=== PATIENT | female | born 1985 | race Caucasian/White ===

== ENCOUNTER 2019-05-22 07:17 | Emergency (ER) | payer OTHER ==
--- NOTE | 2019-05-22 07:49 | ERPHSYRPT ---
- History of Present Illness Time Seen by Provider: 05/22/19 07:22 Historian: patient Physician History: Patient is here with abdominal pain. Started 3 days ago. No falls no trauma. Previous tubal ligation. Location: left flank Quality: sharp Radiation: none Severity: moderate Duration: 3 days Timing: gradual Modifying factors/associated signs and symptoms: home OTC medication Allergies/Adverse Reactions: No Known Drug Allergies Allergy (Unverified 05/22/19 07:45) Home Medications: Levothyroxine Sodium 112 Mcg [Synthroid 112 Mcg] 1 tab PO DAILY 05/22/19 [ History] Travel Risk - International Travel Have you traveled outside of the country in past 3 weeks: No Have you or anyone close to you been diagnosed with or: No Do your reside in a community with a known COVID-19 case?: Yes If Yes where:: [place] - Coronavirus Screening Has patient experienced Coronavirus symptoms: No - Review of Systems Constitutional: No Fever, No Chills Eyes: No Symptoms Ears, Nose, & Throat: No Symptoms Respiratory: No Cough, No Dyspnea Cardiac: No Chest Pain, No Edema, No Syncope Abdominal/Gastrointestinal: Abdominal Pain, No Nausea, No Vomiting, No Diarrhea Genitourinary Symptoms: Dysuria Musculoskeletal: No Back Pain, No Neck Pain Skin: No Rash Neurological: No Dizziness, No Focal Weakness, No Sensory Changes Psychological: No Symptoms Endocrine: No Symptoms All Other Systems: Reviewed and Negative - Nursing Vital Signs Nursing Vital Signs: Initial Vital Signs Temperature 96.7 F 05/22/19 07:47 Pulse Rate 77 05/22/19 07:47 Respiratory Rate 18 05/22/19 07:47 Blood Pressure 120/82 05/22/19 07:47 O2 Sat by Pulse Oximetry 100 05/22/19 07:47 Pain Scale Pain Intensity 0 - Physical Exam General Appearance: no apparent distress, alert Eye Exam: PERRL/EOMI, eyes nml inspection Ears, Nose, Throat Exam: normal ENT inspection, pharynx normal, moist mucous membranes Neck Exam: normal inspection, non-tender, supple, full range of motion Respiratory Exam: normal breath sounds, lungs clear, No respiratory distress Cardiovascular Exam: regular rate/rhythm, normal heart sounds Gastrointestinal/Abdomen Exam: soft, other (Left flank tenderness to palpation. Abdomen is soft without rebound or guarding.), No tenderness, No mass Back Exam: normal inspection, normal range of motion, No CVA tenderness, No vertebral tenderness Extremity Exam: normal inspection, normal range of motion, pelvis stable Neurologic Exam: alert, oriented x 3, cooperative, normal mood/affect, nml cerebellar function, sensation nml, No motor deficits Skin Exam: normal color, warm, dry Ordered Tests: Active Orders 24 hr Category Date Time Status ABDOMEN AND PELVIS W CONTRAST [CT] Stat Exams 05/22/19 08:39 Taken CBC W DIFF Stat Lab 05/22/19 07:58 Completed CMP Stat Lab 05/22/19 07:58 Completed CULTURE,URINE Stat Lab 05/22/19 08:06 Received HCG,QUALITATIVE URINE Stat Lab 05/22/19 08:06 Completed LIPASE Stat Lab 05/22/19 07:58 Completed UA W/RFX UR CULTURE Stat Lab 05/22/19 08:06 Completed Medication Summary Discontinued Medications Generic Name Dose Route Start Last Admin Trade Name Freq PRN Reason Stop Dose Admin Sodium Chloride 1,000 mls @ 999 mls/hr 05/22/19 07:53 05/22/19 08:06 Sodium Chloride 0.9% 1000 Ml IV 05/22/19 08:53 999 mls/hr .Q1H1M STA Administration Sodium Chloride Confirm 05/22/19 07:56 Sodium Chloride 0.9% 1000 Ml Administered 05/22/19 07:57 Dose 1,000 mls @ ud .ROUTE .STK-MED ONE Morphine Sulfate Confirm 05/22/19 07:57 Morphine Sulfate 4 Mg Inj Administered 05/22/19 07:58 Dose 4 mg .ROUTE .STK-MED ONE Morphine Sulfate 10 mg 05/22/19 09:02 Morphine Sulfate 10 Mg/Ml IV 05/22/19 09:03 STAT ONE Ondansetron HCl 4 mg 05/22/19 07:53 05/22/19 08:06 Zofran 4 Mg/2 Ml Vial IV 05/22/19 07:54 4 mg STAT ONE Administration Ondansetron HCl Confirm 05/22/19 07:56 Zofran 4 Mg/2 Ml Vial Administered 05/22/19 07:57 Dose 4 mg .ROUTE .STK-MED ONE Lab/Rad Data: Laboratory Result Diagrams 05/22/19 07:58 05/22/19 07:58 Laboratory Results 05/22/19 05/22/19 05/22/19 Range/Units 08:06 08:06 07:58 WBC (4.0-10.5) K/mm3 RBC (4.1-5.4) M/mm3 Hgb (12.0-16.0) gm/dl Hct (35-47) % MCV (78-100) fl MCH (26-32) pg MCHC (32-36) g/dl RDW (11.5-14.0) % Plt Count (150-450) K/mm3 MPV (7.5-11.0) fl Gran % (36.0-66.0) % Eos # (Auto) (0-0.5) Absolute Lymphs (auto) (1.0-4.6) Absolute Monos (auto) (0.0-1.3) Lymphocytes % (24.0-44.0) % Monocytes % (0.0-12.0) % Eosinophils % (0.00-5.0) % Basophils % (0.0-0.4) % Absolute Granulocytes (1.4-6.9) Basophils # (0-0.4) Sodium 140 (137-145) mmol/L Potassium 3.4 L (3.5-5.1) mmol/L Chloride 105 (98-107) mmol/L Carbon Dioxide 24 (22-30) mmol/L Anion Gap 15.2 H (5-15) MEQ/L BUN 14 (7-17) mg/dL Creatinine 0.68 (0.52-1.04) mg/dL Estimated GFR > 60.0 ML/MIN Glucose 136 H (74-106) mg/dL Calcium 9.4 (8.4-10.2) mg/dL Total Bilirubin 0.50 (0.2-1.3) mg/dL AST 20 (14-36) U/L ALT 15 (0-35) U/L Alkaline Phosphatase 68 (38-126) U/L Serum Total Protein 8.1 (6.3-8.2) g/dL Albumin 4.6 (3.5-5.0) g/dL Lipase 112 (23-300) U/L Urine Color YELLOW (YELLOW) Urine Appearance CLOUDY (CLEAR) Urine pH 5.0 (5-6) Ur Specific [place] 1.017 (1.005-1.025) Urine Protein NEGATIVE (Negative) Urine Ketones NEGATIVE (NEGATIVE) Urine Blood LARGE (0-5) Seamus/ul Urine Nitrite NEGATIVE (NEGATIVE) Urine Bilirubin NEGATIVE (NEGATIVE) Urine Urobilinogen NEGATIVE (0-1) mg/dL Ur Leukocyte Esterase TRACE (NEGATIVE) Urine WBC (Auto) 11-15 (0-5) /HPF Urine RBC (Auto) >101 (0-2) /HPF U Epithel Cells (Auto) RARE (FEW) /HPF Urine Bacteria (Auto) FEW (NEGATIVE) /HPF Urine Mucus (Auto) SLIGHT (NEGATIVE) /HPF Urine Culture Reflexed YES (NO) Urine Glucose NEGATIVE (NEGATIVE) mg/dL Urine HCG, Qual NEGATIVE (Negative) 05/22/19 Range/Units 07:58 WBC 10.3 (4.0-10.5) K/mm3 RBC 4.17 (4.1-5.4) M/mm3 Hgb 12.8 (12.0-16.0) gm/dl Hct 37.8 (35-47) % MCV 90.6 (78-100) fl MCH 30.7 (26-32) pg MCHC 33.9 (32-36) g/dl RDW 12.5 (11.5-14.0) % Plt Count 259 (150-450) K/mm3 MPV 10.4 (7.5-11.0) fl Gran % 68.8 H (36.0-66.0) % Eos # (Auto) 0.14 (0-0.5) Absolute Lymphs (auto) 2.38 (1.0-4.6) Absolute Monos (auto) 0.65 (0.0-1.3) Lymphocytes % 23.2 L (24.0-44.0) % Monocytes % 6.3 (0.0-12.0) % Eosinophils % 1.4 (0.00-5.0) % Basophils % 0.3 (0.0-0.4) % Absolute Granulocytes 7.06 H (1.4-6.9) Basophils # 0.03 (0-0.4) Sodium (137-145) mmol/L Potassium (3.5-5.1) mmol/L Chloride (98-107) mmol/L Carbon Dioxide (22-30) mmol/L Anion Gap (5-15) MEQ/L BUN (7-17) mg/dL Creatinine (0.52-1.04) mg/dL Estimated GFR ML/MIN Glucose (74-106) mg/dL Calcium (8.4-10.2) mg/dL Total Bilirubin (0.2-1.3) mg/dL AST (14-36) U/L ALT (0-35) U/L Alkaline Phosphatase (38-126) U/L Serum Total Protein (6.3-8.2) g/dL Albumin (3.5-5.0) g/dL Lipase (23-300) U/L Urine Color (YELLOW) Urine Appearance (CLEAR) Urine pH (5-6) Ur Specific [place] (1.005-1.025) Urine Protein (Negative) Urine Ketones (NEGATIVE) Urine Blood (0-5) Seamus/ul Urine Nitrite (NEGATIVE) Urine Bilirubin (NEGATIVE) Urine Urobilinogen (0-1) mg/dL Ur Leukocyte Esterase (NEGATIVE) Urine WBC (Auto) (0-5) /HPF Urine RBC (Auto) (0-2) /HPF U Epithel Cells (Auto) (FEW) /HPF Urine Bacteria (Auto) (NEGATIVE) /HPF Urine Mucus (Auto) (NEGATIVE) /HPF Urine Culture Reflexed (NO) Urine Glucose (NEGATIVE) mg/dL Urine HCG, Qual (Negative) - Progress Progress: improved Progress Note: 05/22/19 07:49 differential diagnosis includes kidney stone, compression fracture, infection, UTI, triple AAA - basic labs including: CBC, lipase, CMP, UA, urine - insert IV for fluids, pain meds, nausea control - consider imaging: CT ab/pelvis 05/22/19 09:22 CT scan demonstrates left-sided kidney stone. 3 mm. Partially obstructing. No urinary tract infection, signs of pyelonephritis, normal creatinine here. Therefore, patient can go home and follow-up with urology. Patient was given strict return precautions. Will return here for any new or changing symptoms. Plan of care was discussed with patient and all questions answered. The patient is agreeable to be discharged home and both verbal and printed discharge instructions were provided.The patient agreed to seek outpatient follow up as discussed. The patient was given strict instructions to return to the emergency department for worsening symptoms or any other emergent concerns. The patient verbalized understanding. - Departure Departure Disposition: Home Clinical Impression: Kidney stone Condition: Stable Critical Care Time: No Referrals: DOCTOR,NO FAMILY [Primary Care Provider] - DAX HALL [ACTIVE STAFF] - Instructions: Acute Abdomen (Belly Pain), Adult (DC) Additional Instructions: [facility] Address: [address] [place] [address] [place] [address] Hours/open today: Closes 5PM today Call and make a urology follow-up appointment today. You have a 3 mm left- sided UVJ stone. Prescriptions: Tramadol HCl 50 mg [Ultram 50 mg] 50 mg PO Q6HPRN PRN 5 Days #15 tablet PRN Reason: Pain Ondansetron HCl [Zofran] 4 mg PO TID PRN #10 tablet PRN Reason: Nausea/Vomiting
[2019-05-22] MEDS ORDERED: Sodium Chloride 0.9% 1000 ML 1,000 ML IV STA (07:53)
[2019-05-22] MEDS ORDERED: Zofran 4 MG/2 ML VIAL IV ONE (07:53)
[2019-05-22] MEDS ORDERED: Sodium Chloride 0.9% 1000 ML 1,000 ML ONE (07:56)
[2019-05-22] MEDS ORDERED: Zofran 4 MG/2 ML VIAL ONE (07:56)
[2019-05-22] MEDS ORDERED: MORPHINE SULFATE 4 MG INJ ONE (07:57)
[2019-05-22 08:01] LABS: Absolute Neutrophil Ct (ANC) 7.06 (1.4-6.9); BASOPHIL % 0.3 % (0.0-0.4); Basophil (Absolute #) 0.03 (0-0.4); Eosinophil % 1.4 % (0.00-5.0); Eosinophil (Absolute #) 0.14 (0-0.5); Hematocrit 37.8 % (35-47); Hemoglobin 12.8 gm/dl (12.0-16.0); Lymphocyte (Absolute #) 2.38 (1.0-4.6); Lymphocytes % 23.2 % (24.0-44.0); Mean Cell Volume 90.6 fl (78-100); Mean Corpuscular Hemoglobin 30.7 pg (26-32); Mean Corpuscular Hgb Concent. 33.9 g/dl (32-36); Mean Platelet Volume 10.4 fl (7.5-11.0); Monocyte (Absolute #) 0.65 (0.0-1.3); Monocytes % 6.3 % (0.0-12.0); Neutrophil % 68.8 % (36.0-66.0); Platelet Count 259 K/mm3 (150-450); Red Blood Count 4.17 M/mm3 (4.1-5.4); Red Cell Distribution Width 12.5 % (11.5-14.0); White Blood Count 10.3 K/mm3 (4.0-10.5)
[2019-05-22 08:05] VITALS: BP 120/82; O2SAT 100
[2019-05-22 08:23] LABS: ALBUMIN 4.6 g/dL (3.5-5.0); ALKALINE PHOSPHATASE 68 U/L (38-126); ANION GAP 15.2 MEQ/L (5-15); BLOOD UREA NITROGEN 14 mg/dL (7-17); CHLORIDE 105 mmol/L (98-107); Calcium 9.4 mg/dL (8.4-10.2); Carbon Dioxide 24 mmol/L (22-30); Creatinine 1 0.68 mg/dL (0.52-1.04); Glucose 136 mg/dL (74-106); LIPASE 112 U/L (23-300); Potassium 3.4 mmol/L (3.5-5.1); SGOT/AST 20 U/L (14-36); SGPT/ALT 15 U/L (0-35); SODIUM 140 mmol/L (137-145); Total Protein 8.1 g/dL (6.3-8.2)
[2019-05-22 08:29] LABS: Appearance CLOUDY (CLEAR); Bacteria FEW /HPF (NEGATIVE); Bilirubin NEGATIVE (NEGATIVE); Blood LARGE Ery/ul (0-5); Epithelial Cells RARE /HPF (FEW); Glucose NEGATIVE (NEGATIVE); Ketones NEGATIVE (NEGATIVE); Leukocyte Esterase TRACE (NEGATIVE); Mucus SLIGHT /HPF (NEGATIVE); Nitrite NEGATIVE (NEGATIVE); Protein,Urine Dip NEGATIVE (Negative); Specific Gravity 1.017 (1.005-1.025); Urobilinogen NEGATIVE mg/dL (0-1)
[2019-05-22 08:30] LABS: RBC >101 /HPF (0-2)
[2019-05-22] MEDS ORDERED: MORPHINE SULFATE 10 MG/ML IV ONE (09:02)
--- NOTE | 2019-05-22 09:12 | XRAY ---
Indication: Left abdomen pain. Dysuria. Multiple contiguous axial images obtained through the abdomen and pelvis using 80 cc Isovue-370 contrast only. Comparison: None Lung bases are clear. Heart is not enlarged. Noncontrasted stomach and bowel loops appear nonobstructed. Previous appendectomy reported. Tiny cul-de-sac fluid presumed physiologic from rupture/leaking cyst. 3 mm distal left ureter calculus approximately 1-2 cm proximal to the UVJ. Proximal left ureter is slightly prominent and there is mild hydronephrosis consistent with partial obstructive uropathy. 1 cm left mid renal cyst. Remaining liver, gallbladder, pancreas, spleen, adrenal glands, right kidney, right ureter, urinary bladder, uterus, and aorta appear unremarkable. No pathologic retroperitoneal lymphadenopathy. Osseous structures intact. Impression: 1. 3 mm distal left ureter calculus producing partial obstruction as detailed. Incidental left renal cyst. 2. Tiny cul-de-sac free fluid presumed physiologic. 3. Remaining CT abdomen/pelvis with contrast exam is negative.
[2019-05-22 09:18] VITALS: PULSE 84
== END 2019-05-22 09:48 | disposition home or self-care (01) ==
LOC: ED 07:17
DX: N20.0 Calculus of kidney (principal)
CPT/HCPCS: 36000; 36415; 74177; 80053; 81001; 83690; 84703; 85025; 87086; 96360; 96374; 96375; 99284; J2270; J2405

== ENCOUNTER 2021-03-30 16:37 | Emergency (ER) | payer OTHER ==
[2021-03-30] MEDS ORDERED: Zofran 4 MG/2 ML VIAL IV ONE (16:58)
[2021-03-30] MEDS ORDERED: Sodium Chloride 0.9% 1000 ML 1,000 ML IV STA (16:58)
--- NOTE | 2021-03-30 17:02 | ERPHSYRPT ---
- History of Present Illness Historian: patient Exam Limitations: no limitations Patient Subjective Stated Complaint: pt reports left lower abdominal and flank pain beginning after quaker today, reports history of kidney stone 2 years ago. Triage Nursing Assessment: pt is aox3, appears in pain, afebrile, pupils perrl, resps easy and non labored, cap refill < 3 seconds, radial pulses strong and equal, abd soft, tender to the LLQ and flank, bowel sounds present x 4 quads, pt skin pink warm dry. Timing/Duration: today Activities at Onset: none Quality: cramping, stabbing Abdominal Pain Onset Location: LLQ Pain Radiation: flank Severity of Pain-Max: severe Severity of Pain-Current: severe Modifying Factors: Improves With: nothing Associated Symptoms: denies symptoms Previous symptoms: same symptoms as today Hx Tetanus, Diphtheria Vaccination/Date Given: Yes Hx Influenza Vaccination/Date Given: No Hx Pneumococcal Vaccination/Date Given: No Immunizations Up to Date: Yes <DINESH REINOSO - Last Filed: 03/30/21 18:46> <SLAVA REID - Last Filed: 03/30/21 19:10> - History of Present Illness Time Seen by Provider: 03/30/21 17:00 Physician History: pt reports left lower abdominal and flank pain beginning after quaker today, reports history of kidney stone 2 years ago (DINESH REINOSO) Allergies/Adverse Reactions: No Known Drug Allergies Allergy (Verified 03/30/21 16:56) Home Medications: Levothyroxine Sodium 112 Mcg [Synthroid 112 Mcg] 1 tab PO DAILY 05/22/19 [History] Travel Risk - International Travel Have you traveled outside of the country in past 3 weeks: No - Coronavirus Screening Are you exhibiting any of the following symptoms?: No Close contact with a COVID-19 positive Pt in past 14-21 Days: No - Vaccine Status Have you recieved a Covid-19 vaccination: No <DINESH REINOSO - Last Filed: 03/30/21 18:46> - Review of Systems Constitutional: No Fever, No Chills Eyes: No Symptoms Ears, Nose, & Throat: No Symptoms Respiratory: No Cough, No Dyspnea Cardiac: No Chest Pain, No Edema, No Syncope Abdominal/Gastrointestinal: No Abdominal Pain, No Nausea, No Vomiting, No Di arrhea Genitourinary Symptoms: Dysuria, Flank Pain Musculoskeletal: No Back Pain, No Neck Pain Skin: No Rash Neurological: No Dizziness, No Focal Weakness, No Sensory Changes Psychological: No Symptoms Endocrine: No Symptoms All Other Systems: Reviewed and Negative <KEMAR,DINESH - Last Filed: 03/30/21 18:46> - Past Medical History Pertinent Past Medical History: Yes Neurological History: No Pertinent History ENT History: No Pertinent History Cardiac History: No Pertinent History Respiratory History: No Pertinent History Endocrine Medical History: Hypothyroidism Musculoskeletal History: No Pertinent History GI Medical History: No Pertinent History History: No Pertinent History Psycho-Social History: No Pertinent History Female Reproductive Disorders: No Pertinent History Other Medical History: WPW - Past Surgical History Past Surgical History: Yes Neuro Surgical History: No Pertinent History Cardiac: No Pertinent History Respiratory: No Pertinent History Gastrointestinal: No Pertinent History Genitourinary: No Pertinent History Musculoskeletal: No Pertinent History Female Surgical History: Tubal Ligation - Social History Smoking Status: Never smoker Exposure to second hand smoke: No Drug Use: none Patient Lives Alone: No - Female History Hx Last Menstrual Period: 03/17/21 Hx Now: No <KEMAR,DINESH - Last Filed: 03/30/21 18:46> - Physical Exam General Appearance: no apparent distress, alert Eye Exam: PERRL/EOMI, eyes nml inspection Ears, Nose, Throat Exam: normal ENT inspection, pharynx normal, moist mucous membranes Neck Exam: normal inspection, non-tender, supple, full range of motion Respiratory Exam: normal breath sounds, lungs clear, No respiratory distress Cardiovascular Exam: regular rate/rhythm, normal heart sounds Gastrointestinal/Abdomen Exam: soft, tenderness (left CVA), No mass Back Exam: normal inspection, normal range of motion, No CVA tenderness, No vertebral tenderness Extremity Exam: normal inspection, normal range of motion, pelvis stable Neurologic Exam: alert, oriented x 3, cooperative, normal mood/affect, nml cerebellar function, sensation nml, No motor deficits Skin Exam: normal color, warm, dry SpO2: 100 <KEMAR,DINESH - Last Filed: 03/30/21 18:46> - Nursing Vital Signs Nursing Vital Signs: Initial Vital Signs Temperature 98.0 F 03/30/21 16:43 Pulse Rate 68 03/30/21 16:43 Respiratory Rate 20 03/30/21 16:43 Blood Pressure 123/77 03/30/21 16:43 O2 Sat by Pulse Oximetry 100 03/30/21 16:43 Pain Scale Pain Intensity 4 - Course Nursing assessment & vital signs reviewed: Yes - CT Exams Abdomen/Pelvis CT Interpretation: Tele-radiologist Report <DINESH REINOSO - Last Filed: 03/30/21 18:46> - Course Nursing assessment & vital signs reviewed: Yes - CT Exams Abdomen/Pelvis CT Interpretation: Tele-radiologist Report <FRANKLINSLAVA - Last Filed: 03/30/21 19:10> Ordered Tests: Active Orders 24 hr Category Date Time Status ABDOMEN AND PELVIS W/0 CONTRAS [CT] Stat Exams 03/30/21 16:59 Taken AMYLASE Stat Lab 03/30/21 17:08 Completed CBC W DIFF Stat Lab 03/30/21 17:08 Completed CMP Stat Lab 03/30/21 17:08 Completed CULTURE,URINE Stat Lab 03/30/21 17:08 Received HCG QUALITATIVE,SERUM Stat Lab 03/30/21 17:08 Completed LIPASE Stat Lab 03/30/21 17:08 Completed UA W/RFX UR CULTURE Stat Lab 03/30/21 17:08 Completed Medication Summary Discontinued Medications Generic Name Dose Route Start Last Admin Trade Name Holly PRN Reason Stop Dose Admin Fentanyl Citrate 50 mcg 03/30/21 16:58 03/30/21 17:28 Fentanyl Citrate 100 Mcg/2 Ml* Vial IV 03/30/21 16:59 Not Given STAT ONE Fentanyl Citrate Confirm 03/30/21 17:17 Fentanyl Citrate 100 Mcg/2 Ml* Vial Administered 03/30/21 17:18 Dose 100 mcg .ROUTE .STK-MED ONE Hydromorphone HCl 1 mg 03/30/21 18:58 Hydromorphone 1 Mg/1ml Inj 1 Mg/Ml Syringe IV 03/30/21 18:59 STAT ONE Hydromorphone HCl 1 mg 03/30/21 18:58 Hydromorphone 1 Mg/1ml Inj 1 Mg/Ml Syringe IM 03/30/21 18:59 STAT ONE Sodium Chloride 1,000 mls @ 999 mls/hr 03/30/21 16:58 03/30/21 18:30 Sodium Chloride 0.9% 1000 Ml IV 03/30/21 17:58 Infused .Q1H1M STA Infusion Sodium Chloride Confirm 03/30/21 17:18 Sodium Chloride 0.9% 1000 Ml Administered 03/30/21 17:19 Dose 1,000 mls @ ud .ROUTE .STK-MED ONE Ceftriaxone Sodium/Dextrose 1 g in 50 mls @ 100 mls/hr 03/30/21 17:44 03/30/21 18:33 Rocephin 1 Gm-D5w 50 Ml Bag IV 03/30/21 18:13 100 mls/hr STAT STA 100 mls/hr Administration Ceftriaxone Sodium/Dextrose Confirm 03/30/21 18:30 Rocephin 1 Gm-D5w 50 Ml Bag Administered 03/30/21 18:31 Dose 1 g in 50 mls @ ud IV .STK-MED ONE Ketorolac Tromethamine 30 mg 03/30/21 17:28 03/30/21 17:30 Ketorolac Tromethamine 30 Mg/Ml Inj IV 03/30/21 17:29 30 mg STAT ONE Administration Ketorolac Tromethamine Confirm 03/30/21 17:26 Ketorolac Tromethamine 30 Mg/Ml Inj Administered 03/30/21 17:27 Dose 30 mg .ROUTE .STK-MED ONE Metoclopramide HCl 10 mg 03/30/21 19:01 Metoclopramide Hcl 10 Mg Tablet PO 03/30/21 19:02 ONCE STA Ondansetron HCl 4 mg 03/30/21 16:58 03/30/21 17:19 Ondansetron Hcl 4 Mg/2 Ml Vial IV 03/30/21 16:59 4 mg STAT ONE Administration Ondansetron HCl Confirm 03/30/21 17:17 Ondansetron Hcl 4 Mg/2 Ml Vial Administered 03/30/21 17:18 Dose 4 mg .ROUTE .STK-MED ONE Tamsulosin HCl 0.8 mg 03/30/21 18:59 Tamsulosin Hcl 0.4 Mg Cap PO 03/30/21 19:00 HS STA Lab/Rad Data: Laboratory Result Diagrams 03/30/21 17:08 03/30/21 17:08 Laboratory Results 03/30/21 03/30/21 03/30/21 Range/Units 17:08 17:08 17:08 WBC 13.0 H (4.0-10.5) K/mm3 RBC 4.02 L (4.1-5.4) M/mm3 Hgb 12.4 (12.0-16.0) gm/dl Hct 36.5 (35-47) % MCV 90.8 (78-100) fl MCH 30.8 (26-32) pg MCHC 34.0 (32-36) g/dl RDW 12.4 (11.5-14.0) % Plt Count 272 (150-450) K/mm3 MPV 10.3 (7.5-11.0) fl Gran % 81.8 H (36.0-66.0) % Eos # (Auto) 0.06 (0-0.5) Absolute Lymphs (auto) 1.63 (1.0-4.6) Absolute Monos (auto) 0.64 (0.0-1.3) Lymphocytes % 12.6 L (24.0-44.0) % Monocytes % 4.9 (0.0-12.0) % Eosinophils % 0.5 (0.00-5.0) % Basophils % 0.2 (0.0-0.4) % Absolute Granulocytes 10.61 H (1.4-6.9) Basophils # 0.02 (0-0.4) Sodium 139 (137-145) mmol/L Potassium 3.8 (3.5-5.1) mmol/L Chloride 103 (98-107) mmol/L Carbon Dioxide 24 (22-30) mmol/L Anion Gap 15.9 H (5-15) MEQ/L BUN 16 (7-17) mg/dL Creatinine 0.73 (0.52-1.04) mg/dL Estimated GFR > 60.0 ML/MIN Glucose 154 H (74-106) mg/dL Calcium 9.5 (8.4-10.2) mg/dL Total Bilirubin 0.40 (0.2-1.3) mg/dL AST 19 (14-36) U/L ALT 19 (0-35) U/L Alkaline Phosphatase 84 (38-126) U/L Serum Total Protein 7.6 (6.3-8.2) g/dL Albumin 4.6 (3.5-5.0) g/dL Amylase 52 (30-110) U/L Lipase 96 (23-300) U/L Serum , Qual NEGATIVE (Negative) Urine Color (YELLOW) Urine Appearance (CLEAR) Urine pH (5-6) Ur Specific [place] (1.005-1.025) Urine Protein (Negative) Urine Ketones (NEGATIVE) Urine Blood (0-5) Seamus/ul Urine Nitrite (NEGATIVE) Urine Bilirubin (NEGATIVE) Urine Urobilinogen (0-1) mg/dL Ur Leukocyte Esterase (NEGATIVE) Urine WBC (Auto) (0-5) /HPF Urine RBC (Auto) (0-2) /HPF U Epithel Cells (Auto) (FEW) /HPF Urine Bacteria (Auto) (NEGATIVE) /HPF Calcium Oxalate Crystal (NEGATIVE) /HPF Urine Mucus (Auto) (NEGATIVE) /HPF Urine Culture Reflexed (NO) Urine Glucose (NEGATIVE) mg/dL 03/30/21 Range/Units 17:08 WBC (4.0-10.5) K/mm3 RBC (4.1-5.4) M/mm3 Hgb (12.0-16.0) gm/dl Hct (35-47) % MCV (78-100) fl MCH (26-32) pg MCHC (32-36) g/dl RDW (11.5-14.0) % Plt Count (150-450) K/mm3 MPV (7.5-11.0) fl Gran % (36.0-66.0) % Eos # (Auto) (0-0.5) Absolute Lymphs (auto) (1.0-4.6) Absolute Monos (auto) (0.0-1.3) Lymphocytes % (24.0-44.0) % Monocytes % (0.0-12.0) % Eosinophils % (0.00-5.0) % Basophils % (0.0-0.4) % Absolute Granulocytes (1.4-6.9) Basophils # (0-0.4) Sodium (137-145) mmol/L Potassium (3.5-5.1) mmol/L Chloride (98-107) mmol/L Carbon Dioxide (22-30) mmol/L Anion Gap (5-15) MEQ/L BUN (7-17) mg/dL Creatinine (0.52-1.04) mg/dL Estimated GFR ML/MIN Glucose (74-106) mg/dL Calcium (8.4-10.2) mg/dL Total Bilirubin (0.2-1.3) mg/dL AST (14-36) U/L ALT (0-35) U/L Alkaline Phosphatase (38-126) U/L Serum Total Protein (6.3-8.2) g/dL Albumin (3.5-5.0) g/dL Amylase (30-110) U/L Lipase (23-300) U/L Serum , Qual (Negative) Urine Color YELLOW (YELLOW) Urine Appearance CLOUDY (CLEAR) Urine pH 5.0 (5-6) Ur Specific [place] 1.028 (1.005-1.025) Urine Protein 100 (Negative) Urine Ketones NEGATIVE (NEGATIVE) Urine Blood LARGE (0-5) Seamus/ul Urine Nitrite NEGATIVE (NEGATIVE) Urine Bilirubin NEGATIVE (NEGATIVE) Urine Urobilinogen NEGATIVE (0-1) mg/dL Ur Leukocyte Esterase NEGATIVE (NEGATIVE) Urine WBC (Auto) 0-2 (0-5) /HPF Urine RBC (Auto) >101 (0-2) /HPF U Epithel Cells (Auto) RARE (FEW) /HPF Urine Bacteria (Auto) NONE (NEGATIVE) /HPF Calcium Oxalate Crystal 11-25 (NEGATIVE) /HPF Urine Mucus (Auto) SLIGHT (NEGATIVE) /HPF Urine Culture Reflexed YES (NO) Urine Glucose NEGATIVE (NEGATIVE) mg/dL - Progress Progress: improved <SLAVA REID - Last Filed: 03/30/21 19:10> - Progress Progress Note: 03/30/21 19:03 Patient was instructed to follow-up with her primary care physician if she has not passed the stone within 48 to 72 hours if she starts running a fever increased pain etc. (SLAVA REID) <DINESH REINOSO - Last Filed: 03/30/21 18:46> - Departure Departure Disposition: Home Critical Care Time: No <SLAVA REID - Last Filed: 03/30/21 19:10> - Departure Clinical Impression: Kidney stone Condition: Stable Referrals: DOCTOR,NO FAMILY [Primary Care Provider] - Follow up/PCP as directed Instructions: Renal Colic (DC) Prescriptions: Hydrocodone/Acetaminophen [Hydrocodone-Acetamin 5-325 mg] 1 tab PO Q6HPRN PRN 3 Days #12 tablet MDD 4 PRN Reason: Pain Tamsulosin HCl 0.4 mg [Flomax 0.4 MG] 0.4 mg PO HS 7 Days #7 cap MDD 1 Metoclopramide HCl 10 mg [Reglan 10 MG] 10 mg PO Q6H 4 Days #16 tablet MDD 4
[2021-03-30] MEDS ORDERED: Zofran 4 MG/2 ML VIAL ONE (17:17)
[2021-03-30] MEDS ORDERED: SUBLIMAZE 100 MCG/2 ML ONE (17:17)
[2021-03-30] MEDS ORDERED: Sodium Chloride 0.9% 1000 ML 1,000 ML ONE (17:18)
[2021-03-30] MEDS: SUBLIMAZE 100 MCG/2 ML IV ONE ×2 (17:19→17:28)
[2021-03-30 17:21] LABS: Absolute Neutrophil Ct (ANC) 10.61 (1.4-6.9); Basophil (Absolute #) 0.02 (0-0.4); Eosinophil % 0.5 % (0.00-5.0); Eosinophil (Absolute #) 0.06 (0-0.5); Hematocrit 36.5 % (35-47); Hemoglobin 12.4 gm/dl (12.0-16.0); Lymphocyte (Absolute #) 1.63 (1.0-4.6); Lymphocytes % 12.6 % (24.0-44.0); Mean Cell Volume 90.8 fl (78-100); Mean Corpuscular Hemoglobin 30.8 pg (26-32); Mean Platelet Volume 10.3 fl (7.5-11.0); Monocyte (Absolute #) 0.64 (0.0-1.3); Monocytes % 4.9 % (0.0-12.0); Neutrophil % 81.8 % (36.0-66.0); Platelet Count 272 K/mm3 (150-450); Red Blood Count 4.02 M/mm3 (4.1-5.4); Red Cell Distribution Width 12.4 % (11.5-14.0)
[2021-03-30] MEDS ORDERED: TORAdol 30 mg Injection ONE (17:26)
[2021-03-30 17:28] LABS: Appearance CLOUDY (CLEAR); Bilirubin NEGATIVE (NEGATIVE); Blood LARGE Ery/ul (0-5); Epithelial Cells RARE /HPF (FEW); Glucose NEGATIVE (NEGATIVE); Ketones NEGATIVE (NEGATIVE); Leukocyte Esterase NEGATIVE (NEGATIVE); Mucus SLIGHT /HPF (NEGATIVE); Nitrite NEGATIVE (NEGATIVE); Protein,Urine Dip 100 (Negative); Specific Gravity 1.028 (1.005-1.025); Urobilinogen NEGATIVE mg/dL (0-1); WBC 0-2 /HPF (0-5)
[2021-03-30] MEDS ORDERED: TORAdol 30 mg Injection IV ONE (17:28)
[2021-03-30 17:29] LABS: RBC >101 /HPF (0-2)
[2021-03-30 17:44] LABS: ALBUMIN 4.6 g/dL (3.5-5.0); ALKALINE PHOSPHATASE 84 U/L (38-126); AMYLASE 52 U/L (30-110); ANION GAP 15.9 MEQ/L (5-15); BLOOD UREA NITROGEN 16 mg/dL (7-17); CHLORIDE 103 mmol/L (98-107); Calcium 9.5 mg/dL (8.4-10.2); Carbon Dioxide 24 mmol/L (22-30); Creatinine 1 0.73 mg/dL (0.52-1.04); EST GLOMERULAR FILTRATION RATE > 60.0 ML/MIN; Glucose 154 mg/dL (74-106); LIPASE 96 U/L (23-300); Potassium 3.8 mmol/L (3.5-5.1); SGOT/AST 19 U/L (14-36); SGPT/ALT 19 U/L (0-35); SODIUM 139 mmol/L (137-145); Total Protein 7.6 g/dL (6.3-8.2)
[2021-03-30] MEDS ORDERED: ROCEPHIN 1 Gm-D5w 50 ml Bag** 1 G/50 ML IVPB IV STA (17:44)
[2021-03-30] MEDS ORDERED: ROCEPHIN 1 Gm-D5w 50 ml Bag** 1 G/50 ML IVPB IV ONE (18:30)
[2021-03-30] MEDS ORDERED: Hydromorphone 1 mg/ml Injection IV ONE (18:58)
[2021-03-30] MEDS ORDERED: Hydromorphone 1 mg/ml Injection IM ONE (18:58)
[2021-03-30] MEDS ORDERED: Flomax 0.4 MG PO STA (18:59)
[2021-03-30] MEDS ORDERED: Reglan 10 MG PO STA (19:01)
[2021-03-30] MEDS ORDERED: Flomax 0.4 MG ONE (19:06)
[2021-03-30] MEDS ORDERED: Hydromorphone 1 mg/ml Injection ONE (19:06)
[2021-03-30] MEDS ORDERED: Reglan 10 MG ONE (19:06)
[2021-03-30 19:35] VITALS: BP 111/75; PULSE 64; O2SAT 98
--- NOTE | 2021-03-31 08:38 | XRAY ---
Indication: Left lower quadrant pain. History kidney stones. Multiple contiguous images obtained through the abdomen and pelvis without contrast. Comparison: May 22, 2019. Lung bases are clear. Heart not enlarged. Stomach markedly distended with food/fluid. Noncontrasted stomach and bowel loops appear nonobstructed. Appendectomy reported. No free fluid/air. New 3-4 mm proximal left ureter calculus, approximately L4 level. Left kidney appears edematous with mild hydronephrosis favoring obstructive uropathy. Additional bilateral renal micro-calculi. Remaining liver, gallbladder, pancreas, spleen, adrenal glands, kidneys, ureters, bladder, uterus, and aorta are unremarkable for noncontrast exam. Osseous structures intact. Impression: 1. New 3-4 mm proximal left ureter calculus producing obstructive uropathy as detailed. Additional bilateral renal micro-calculi. 2. Remaining CT abdomen/pelvis without contrast exam is negative. Comment: Preliminary interpretation made by C. No critical discrepancy.
== END 2021-03-30 19:34 | disposition home or self-care (01) ==
LOC: ED 16:37
DX: N20.0 Calculus of kidney (principal); R10.32 Left lower quadrant pain; Z87.442 Personal history of urinary calculi; Z79.891 Long term (current) use of opiate analgesic
CPT/HCPCS: 36415; 74176; 80053; 81001; 81025; 82150; 83690; 85025; 87086; 96360; 96365; 96372; 96374; 96375; 99284; J0696; J1170; J1885; J2405; J3010; A9270-GY